=== PATIENT | male | born 1970 | race Caucasian/White ===

== ENCOUNTER → 2019-07-22 | Outpatient (CLI) | payer OTHER, MEDICAID ==
[~2019-07-22] MED LIST: LEVA750T; MOTR200T4; No Historical Meds; VICO5TAB; alleve
[2019-07-22 14:33] LABS: BASO # 0.1 10^3/uL (0.0-0.2); BASO % 0.8 % (0.0-1.0); EOS # 0.1 10^3/uL (0.0-0.5); EOS % 1.9 % (0.0-3.0); HEMATOCRIT 46.5 % (42.0-52.0); HEMOGLOBIN 16.2 g/dl (13.5-17.5); LYMPH # 1.8 10^3/uL (1.5-5.0); LYMPH % 24.4 % (24.0-44.0); MEAN CORPUSCULAR HGB CONC 34.8 g/dl (32.0-36.5); MEAN CORPUSCULAR VOLUME 91.7 fl (80.0-96.0); MONO # 0.5 10^3/uL (0.0-0.8); MONO % 6.7 % (0.0-5.0); NEUTROPHILS # 4.9 10^3/uL (1.5-8.5); NEUTROPHILS % 66.1 % (36.0-66.0); PLATELET COUNT, AUTOMATED 170 10^3/uL (150-450); RED BLOOD COUNT 5.07 10^6/uL (4.30-6.10); WHITE BLOOD COUNT 7.3 10^3/uL (4.0-10.0)
[2019-07-22 14:44] LABS: INR 1.02; PROTHROMBIN TIME 13.1 SECONDS (11.8-14.0)
[2019-07-22 14:45] LABS: PARTIAL THROMBOPLASTIN TIME 24.5 SECONDS (25.0-38.4)
[2019-07-22 15:04] LABS: ALBUMIN 4.1 GM/DL (3.2-5.2); ALT/SGPT 22 U/L (12-78); BILIRUBIN,DIRECT 0.2 MG/DL (0.0-0.2); GAMMA GLUTAMYLTRANSPEPTIDASE 209 U/L (15-85); IRON (FE) 138 UG/DL (65-175); PERCENT SATURATION 37.2 % (19.7-50.0); TOTAL IRON BINDING CAPACITY 371 UG/DL (250-450); TOTAL PROTEIN 7.5 GM/DL (6.4-8.2)
[2019-07-23 09:57] LABS: HEPATITIS B SURFACE ANTIBODY NEGATIVE (POSITIVE)
[2019-07-23 10:05] LABS: HEPATITIS B SURFACE ANTIGEN NEGATIVE (NEGATIVE)
[2019-07-23 10:34] LABS: HEPATITIS C VIRUS ABY INDEX 0.1 INDEX (<0.8)
[2019-07-29 08:06] LABS: ALPHA 1 ANTITRYPSIN 98 mg/dL (90-200); ANTI-MITOCHONDRIAL ANTIBODY <20.0 Units (0.0-20.0); ANTI-SMOOTH MUSCLE ANTIBODY 5 Units (0-19); ANTINUCLEAR ANTIBODIES DIRECT Negative (Negative); CERULOPLASMIN 23.4 mg/dL (16.0-31.0); HEPATITIS A IgG TOTAL Negative (Negative); HEPATITIS B CORE ANTIBODY IGG Negative (Negative); LIVER-KIDNEY MICROSOMAL ABY <20.1 Units (0.0-20.0)
== END ==
LOC: M LAB 14:01
PROVIDERS: ATTEND Internal Medicine Gastroenterology
DX: R94.5 Abnormal results of liver function studies (principal)

== ENCOUNTER → 2019-09-08 | Outpatient (CLI) | payer OTHER ==
--- NOTE | 2019-09-08 10:06 | REP ---
ULTRASOUND ABDOMEN: Real-time sonographic evaluation of the abdomen was performed. Patient has had a prior cholecystectomy. There is expected prominence of the common bile duct measuring 9 mm. In the right lobe of the liver posterior to the right hepatic vein there is a hyperechoic structure measuring 2.1 x 2.3 x [address] 06/10/2011 at [facility] showed a hemangioma at this location, otherwise no gross liver or pancreatic mass is seen. Pancreas is not optimally seen due to overlying bowel gas. Spleen is mildly enlarged measuring 11.3 x 13.5 x 4.5 cm with splenic index 686. The kidneys are normal in size and echotexture, right kidney measuring 10.0 x 4.5 x 4.4 cm and left kidney 11.0 x 4.8 x 5.8 cm. There is no renal mass, hydronephrosis or nephrolithiasis. Abdominal aorta is normal in caliber with no aneurysm, proximally measuring 2.3 cm and distally 1.7 cm and maximum AP dimension. No ascites is seen. IMPRESSION: Status-post cholecystectomy without significant biliary dilatation. Hyperechoic nodule in the right lobe of the liver consistent with hemangioma as seen on prior CT . Mild splenomegaly. Unreviewed
== END ==
LOC: M RAD 07:44
PROVIDERS: ATTEND Internal Medicine Gastroenterology
DX: R94.5 Abnormal results of liver function studies (principal)

== ENCOUNTER 2020-01-08 14:38 | Emergency (ER) | payer OTHER ==
[~2020-01-08] VITALS: Ht 167.6 cm; Wt 84.0 kg
[2020-01-08] MEDS ORDERED: TETRACAINE 0.5% OPHTH SOLN 4ML OU ONE (15:30)
[2020-01-08] MEDS ORDERED: FLUORESCEIN OPHTH 1 MG STRIP OU ONE (15:30)
[2020-01-08] MEDS ORDERED: POLYSOL OU (16:02)
[2020-01-08 16:15] VITALS: BP 118/74
== END 2020-01-08 16:34 | disposition home or self-care (01) ==
LOC: M ED 14:38
DX: H10.9 Unspecified conjunctivitis (principal); Z77.098 Contact with and (suspected) exposure to other hazardous, chiefly nonmedicinal, chemicals; F10.20 Alcohol dependence, uncomplicated; Z88.0 Allergy status to penicillin